=== PATIENT | female | born 1980 | race Caucasian/White ===

== ENCOUNTER 2020-05-04 11:45 | Emergency (ER) | payer OTHER, SELFPAY ==
[2020-05-04 11:52] VITALS: BP 138/96; PULSE 92; RESP 16; TEMP 36.4; O2SAT 100
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
== END 2020-05-04 12:18 | disposition home or self-care (01) ==
PROVIDERS: Emergency Provider Nurse Practitioner; PCP Family Medicine
DX: R09.81 Nasal congestion (principal); H92.01 Otalgia, right ear; I10 Essential (primary) hypertension; M79.7 Fibromyalgia; L40.50 Arthropathic psoriasis, unspecified
CPT/HCPCS: 99213; G0463

== ENCOUNTER 2020-07-28 09:10 | Outpatient (NON) | payer OTHER, SELFPAY ==
[2020-07-28 18:27] LABS: SARS-CoV-2 RNA PCR Positive
== END 2020-07-28 09:11 ==
LOC: ANHCOVIDDT 09:11
PROVIDERS: Family Provider Family Medicine; PCP Family Medicine; Visit Provider Physician Assistant
DX: U07.1 COVID-19 (principal)
CPT/HCPCS: C9803; U0003; U0005

== ENCOUNTER → 2020-09-02 09:13 | Outpatient (CLI) | payer OTHER, SELFPAY ==
--- NOTE | ~2020-09-02 | XR_ITS ---
EXAMINATION: XR lumbar spine 2-3V EXAM DATE: 09/02/2020 09:32 INDICATION: low back pain at multiple sites. TECHNIQUE: Lumber spine frontal, lateral, lateral L5-S1 projections for interpretation. There is no prior study for comparison. FINDINGS: There is moderate disc disease at L5-S1. The vertebral body and disc heights are otherwise well maintained. Mild lower lumbar facet arthropathy. No spondylolysis. Sacrum, sacroiliac joints, s acral arcuate lines are intact. Paraspinal soft tissue is unremarkable. IMPRESSION: 1. L5-S1 moderate disc disease. 2. Mild lower lumbar facet arthropathy. Reviewed, dictated and finalized at location A. STANT CLINICAL NURSE MANAGER
== END ==
DX: M47.817 Spondylosis without myelopathy or radiculopathy, lumbosacral region (principal)
CPT/HCPCS: 72100

== ENCOUNTER → 2021-01-13 13:49 | Outpatient (CLI) | payer BC, OTHER, SELFPAY ==
--- NOTE | ~2021-01-13 | MM_ITS ---
EXAMINATION: MM screening christal BI w erendira HISTORY: Screening mammogram. Baseline examination TECHNIQUE: Craniocaudal and mediolateral oblique 3-D tomosynthesis images were obtained and synthetic 2-D images were generated. CAD analysis was submitted and interpreted. COMPARISON: No prior mammogram is available for comparison at this institution. BREAST PARENCHYMAL COMPOSITION: The breasts are extremely dense, which lowers the sensitivity of mamm ography.... FINDINGS: There is no evidence of suspicious mass, calcification, or architectural distortion to sugg est malignancy in either breast. There has been no suspicious interval change. IMPRESSION: 1. No mammographic evidence of malignancy. 2. Recommend routine screening mammography in one year. BI-RADS Category 1: Negative Reviewed, dictated and finalized at location B.
== END ==
PROVIDERS: Visit Provider Nurse Practitioner
DX: Z12.31 Encounter for screening mammogram for malignant neoplasm of breast (principal)
CPT/HCPCS: 77063; 77067

== ENCOUNTER → 2021-02-20 01:32 | Outpatient (CLI) | payer BC, OTHER, SELFPAY ==
[2021-02-20 20:12] LABS: SARS-CoV-2 RNA PCR Negative
== END ==
PROVIDERS: PCP Family Medicine; Visit Provider Physician Assistant
DX: R05 Cough (principal); Z20.822 Contact with and (suspected) exposure to COVID-19
CPT/HCPCS: C9803; U0003; U0005

== ENCOUNTER 2021-06-19 11:46 | Emergency (ER) | payer BC, OTHER, SELFPAY ==
[2021-06-19 11:55] VITALS: BP 141/85; PULSE 94; RESP 16; TEMP 36.4; O2SAT 100
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
== END 2021-06-19 12:43 | disposition home or self-care (01) ==
PROVIDERS: Emergency Provider Emergency Medicine; PCP Family Medicine
DX: H81.392 Other peripheral vertigo, left ear (principal); I10 Essential (primary) hypertension
CPT/HCPCS: 99213; G0463

== ENCOUNTER 2021-08-03 15:40 | Outpatient (CLI) | payer BC, OTHER, SELFPAY ==
--- NOTE | ~2021-08-03 | CT_ITS ---
EXAMINATION: CT sinus wo con EXAM DATE: 08/03/2021 15:55 INDICATION: R09.82 - Postnasal drip . TECHNIQUE: Spiral CT of the sinuses was acquired in the axial plane. Coronal and sagittal reformatte d images were also reviewed. The dose-length product (DLP) for this examination was 269.39 mGy-cm. Iterative reconstruction (ASIR) was used as dose reduction technique. Comparison is made to prior exa mination from 10/06/2012. FINDINGS: The sinuses are normally developed. The sinuses are well aerated. The ostiomeatal unit s are patent. There is no sinus wall thickening. There is moderate rightward nasal septal devia tion. The mastoid air cells and middle ears are well aerated. External auditory canals are patent. The orbits and visualized soft tissues are unremarkable. IMPRESSION: Moderate rightward nasal septal deviation. Clear sinuses. Reviewed, dictated and finalized at location . OR INSTALLER
== END 2021-08-03 15:41 ==
PROVIDERS: PCP Family Medicine; Visit Provider Otolaryngology
DX: J30.9 Allergic rhinitis, unspecified (principal); R09.82 Postnasal drip; J32.9 Chronic sinusitis, unspecified; J34.2 Deviated nasal septum; J34.3 Hypertrophy of nasal turbinates; J34.89 Other specified disorders of nose and nasal sinuses; R44.8 Other symptoms and signs involving general sensations and perceptions; R51.9 Headache, unspecified
CPT/HCPCS: 70486

== ENCOUNTER → 2022-03-05 16:00 | Outpatient (CLI) | payer BC, OTHER, SELFPAY ==
--- NOTE | ~2022-03-05 | MM_ITS ---
EXAMINATION: MM screening [facility] BI w erendira HISTORY: Screening mammogram TECHNIQUE: Craniocaudal and mediolateral oblique 3-D tomosynthesis images were obtained and synthetic 2-D images were generated. CAD analysis was submitted and interpreted. COMPARISON: 01/13/2021 bilateral screening mammogram BREAST PARENCHYMAL COMPOSITION: The breasts are heterogeneously dense, which may obscure small masses . FINDINGS: There is an asymmetric density in the posterior upper outer right breast. Diagnostic right mammogram and right breast ultrasound examination are recommended. Otherwise there is no evidence of suspicious mass, calcification, or architectural distortion to sugg est malignancy in either breast. There has been no other suspicious interval change. IMPRESSION: 1. Asymmetry in posterior upper outer right breast 2. Diagnostic right mammogram and right breast ultrasound examination are recommended BI-RADS Category 0: Incomplete: Needs additional imaging evaluation. Reviewed, dictated and finalized at location B. IMPRESSION: 1. Asymmetry in posterior upper outer right breast 2. Diagnostic right mammogram and right breast ultrasound examination are recom mended BI-RADS Category 0: Incomplete: Needs additional imaging evaluation.
== END ==
PROVIDERS: PCP Family Medicine; Visit Provider Nurse Practitioner
DX: Z12.31 Encounter for screening mammogram for malignant neoplasm of breast (principal); R92.8 Other abnormal and inconclusive findings on diagnostic imaging of breast
CPT/HCPCS: 77063; 77067

== ENCOUNTER 2022-03-25 13:48 | Outpatient (CLI) | payer BC, OTHER, SELFPAY ==
--- NOTE | ~2022-03-25 | CT_ITS ---
EXAMINATION: CT abdomen pelvis wo con DATE: 03/25/2022 14:06 INDICATION: Cervical duplication TECHNIQUE: Computed tomography (CT) of the abdomen and pelvis was performed without intravenous contr ast. Automated exposure control and iterative reconstruction technique were employed. Exam dose: 437 .46 mGy-cm total exam DLP. COMPARISON: 07/26/2018 CT abdomen pelvis FINDINGS: The lung bases are clear. Normal heart size. Liver, gallbladder, bile ducts, spleen, pancreas, pancreatic duct, and adrenal glands and kidneys are unremarkable on this limited noncontrast examination. No urinary tract calculus or hydroureteronephr osis is detected. Uterus, adnexal areas and urinary bladder appear unremarkable. Normal caliber of the abdominal aorta. No intraperitoneal or retroperitoneal or pelvic mass lesion or adenopathy or ascites is detected. Normal appendix. There is a prominent amount of fecal material in the colon. No bowel obstruction, kevin wel wall thickening, pneumatosis or intraperitoneal free air is detected. Small umbilical hernia containing fat and unobstructed small bowel bowel loop. Prominent degenerative disc disease at L5-S1. No suspicious osteolytic or osteoblastic lesions are no jorge. IMPRESSION: No significant abnormality within the abdomen or pelvis Prominent degenerative disc disease at L5-S1 Reviewed, dictated and finalized at Location A. Reviewed, dictated and finalized at location B.
== END 2022-03-25 13:49 ==
LOC: MICIMG 13:50
PROVIDERS: PCP Family Medicine; Visit Provider Obstetrics & Gynecology Gynecology
DX: Q51.820 Cervical duplication (principal); M51.37 Other intervertebral disc degeneration, lumbosacral region
CPT/HCPCS: 74176

== ENCOUNTER → 2022-03-31 08:36 | Outpatient (CLI) | payer BC, OTHER, SELFPAY ==
--- NOTE | ~2022-03-31 | MMUS_ITS ---
EXAMINATION: MM diagnostic christal RT w erendira, US breast RT limited HISTORY: Asymmetry in posterior upper outer right breast on 03/05/2022 screening mammogram TECHNIQUE: Additional 3-D tomosynthesis images of the right breast were performed and synthetic 2-D i mages were generated. CAD analysis was submitted and interpreted. High resolution upper outer quadran t and axillary tail right breast ultrasound was performed. COMPARISON: 03/05/2022 bilateral screening mammogram FINDINGS: MAMMOGRAPHIC FINDINGS: No suspicious mass or architectural distortion is evident on these supplemental views. There is proba ble mild fibroglandular asymmetry in the right axillary tail area which appears to compress without s uspicious mammographic features. There is heterogeneously dense stroma which may obscure masses. ULTRASOUND: 1:00 4.5 cm from nipple: 4.5 mm cyst 10:00 9 cm from nipple: Benign-appearing 0.5 x 1.5 cm lymph node 12:00 2.5 cm from nipple: 4 mm benign cyst 12-1:00 2.5 cm from nipple: 4 x 10 simple cyst with through transmission and posterior enhancement 12-1:00 2/5 cm from nipple: 4.5 x 10 mm septated cyst with through transmission and enhancement IMPRESSION: 1. No mammographic evidence of malignancy 2. Routine mammographic screening is recommended. BI-RADS Category 2: Benign finding(s). Reviewed, dictated and finalized at location A. IMPRESSION: 1. No mammographic evidence of malignancy 2. Routine mammographic screening is recommended. BI-RADS Category 2: Benign finding(s).
== END ==
PROVIDERS: PCP Family Medicine; Visit Provider Obstetrics & Gynecology Gynecology
DX: R92.8 Other abnormal and inconclusive findings on diagnostic imaging of breast (principal); N60.01 Solitary cyst of right breast
CPT/HCPCS: 76642; 77061; 77065; G0279

== ENCOUNTER 2022-08-29 10:00 | Emergency (ER) | payer BC, OTHER, SELFPAY ==
[2022-08-29 10:43] VITALS: BP 142/78; PULSE 96; RESP 16; TEMP 36.4; O2SAT 99
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
== END 2022-08-29 11:29 | disposition home or self-care (01) ==
PROVIDERS: Emergency Provider Nurse Practitioner Family; PCP Family Medicine
DX: J02.0 Streptococcal pharyngitis (principal); I10 Essential (primary) hypertension; M79.7 Fibromyalgia; L40.50 Arthropathic psoriasis, unspecified
CPT/HCPCS: 87880; 99213; G0463

== ENCOUNTER → 2023-04-02 08:11 | Outpatient (CLI) | payer BC, OTHER, SELFPAY ==
--- NOTE | ~2023-04-02 | MM_ITS ---
EXAMINATION: MM screening christal BI w erendira HISTORY: Screening mammogram TECHNIQUE: Craniocaudal and mediolateral oblique 3-D tomosynthesis images were obtained and synthetic 2-D images were generated. CAD analysis was submitted and interpreted. COMPARISON: 03/31/2022, 03/05/2022, 01/13/2021 BREAST PARENCHYMAL COMPOSITION: The breasts are extremely dense, which lowers the sensitivity of mamm ography. FINDINGS: RIGHT BREAST: No suspicious mass, calcification, or architectural distortion are identified to sugges t malignancy. There has been no suspicious interval change. LEFT BREAST: An asymmetry is present in the posterior third of the breast in line with the nipple axi s on the craniocaudal view. IMPRESSION: 1. Left breast asymmetry. 2. Additional mammographic views and possible breast ultrasound are recommended. BI-RADS Category 0: Incomplete: Needs additional imaging evaluation. Reviewed, dictated and finalized at location A. IMPRESSION: 1. Left breast asymmetry. 2. Additional mammographic views and possible breast ultrasound are recommended . BI-RADS Category 0: Incomplete: Needs additional imaging evaluation.
== END ==
PROVIDERS: PCP Obstetrics & Gynecology Gynecology; Visit Provider Obstetrics & Gynecology Gynecology
DX: Z12.31 Encounter for screening mammogram for malignant neoplasm of breast (principal); N64.89 Other specified disorders of breast
CPT/HCPCS: 77063; 77067

== ENCOUNTER → 2023-04-26 08:32 | Outpatient (CLI) | payer BC, OTHER, SELFPAY ==
--- NOTE | ~2023-04-26 | MMUS_ITS ---
EXAMINATION: MM diagnostic christal LT w erendira, US breast LT complete HISTORY: Mammographic asymmetry reported in posterior third of breast in line with the nipple axis on screening craniocaudal view of 04/02/2023 TECHNIQUE: Additional 3-D tomosynthesis images of the left breast were performed and synthetic 2-D im ages were generated. CAD analysis was submitted and interpreted. High resolution complete left breast ultrasound examination could L4 quadrants and subareolar area was performed. COMPARISON: 04/02/2023 bilateral screening mammogram FINDINGS: MAMMOGRAPHIC FINDINGS: 4 x 6.9 mm circumscribed benign-appearing lymph node is noted at mid depth in the lateral mid left br east (ML Tomosynthesis image ). There is focal asymmetric density in the posterior central left breast on craniocaudal view which may represent an abnormal mass or asymmetric fibroglandular stroma. Ultrasound correlation was performed . ULTRASOUND: No suspicious mass or shadowing is detected. 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 IMPRESSION: 1. Probably benign fibroglandular asymmetry; no mammographic or sonographic evidence of malignancy 2. 6 month diagnostic left mammogram follow-up is recommended to document stability, with ultrasound if required BI-RADS category 3, probably benign findings. Reviewed, dictated and finalized at location A. IMPRESSION: 1. Probably benign fibroglandular asymmetry; no mammographic or sonographic juliette dence of malignancy 2. 6 month diagnostic left mammogram follow-up is recommended to document stabi lity, with ultrasound if required BI-RADS category 3, probably benign findings.
== END ==
PROVIDERS: PCP Family Medicine; Visit Provider Obstetrics & Gynecology Gynecology
DX: R92.8 Other abnormal and inconclusive findings on diagnostic imaging of breast (principal)
CPT/HCPCS: 76641; 77061; 77065; G0279

== ENCOUNTER 2023-05-28 12:17 | Emergency (ER) | payer BC, OTHER, SELFPAY ==
[2023-05-28 12:39] VITALS: BP 133/90; PULSE 95; RESP 16; TEMP 36.4; O2SAT 100
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
== END 2023-05-28 12:59 | disposition home or self-care (01) ==
PROVIDERS: Emergency Provider Nurse Practitioner; PCP Family Medicine
DX: J06.9 Acute upper respiratory infection, unspecified (principal); J02.9 Acute pharyngitis, unspecified; I10 Essential (primary) hypertension
CPT/HCPCS: 87081; 87880; 99213; G0463

== ENCOUNTER 2023-06-04 11:47 | Emergency (ER) | payer BC, OTHER, SELFPAY ==
[2023-06-04 11:59] VITALS: BP 133/95; PULSE 96; RESP 16; TEMP 36.1; O2SAT 100
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
== END 2023-06-04 13:25 | disposition home or self-care (01) ==
PROVIDERS: Emergency Provider Registered Nurse; PCP Family Medicine
DX: J32.9 Chronic sinusitis, unspecified (principal); R05.9 Cough, unspecified; I10 Essential (primary) hypertension; M79.7 Fibromyalgia; L40.50 Arthropathic psoriasis, unspecified
CPT/HCPCS: 99213; G0463

== ENCOUNTER 2023-06-21 17:03 | Emergency (ER) | payer BC, OTHER, SELFPAY ==
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
[2023-06-21 17:12] VITALS: BP 132/81; PULSE 97; RESP 16; TEMP 36.6; O2SAT 100
== END 2023-06-21 17:48 | disposition home or self-care (01) ==
PROVIDERS: Emergency Provider Nurse Practitioner; PCP Family Medicine
DX: J02.9 Acute pharyngitis, unspecified (principal); I10 Essential (primary) hypertension
CPT/HCPCS: 87081; 87880; 99213; G0463

== ENCOUNTER → 2023-08-12 10:18 | Outpatient (CLI) | payer BC, OTHER, SELFPAY ==
--- NOTE | ~2023-08-12 | US_ITS ---
EXAMINATION: US pelvic complete DATE: 08/12/2023 10:56 INDICATION: Abnormal uterine bleeding TECHNIQUE: Multiple transabdominal sonographic images of the pelvis were obtained. COMPARISON: 06/18/2017 FINDINGS: The uterus measures 8.3 x 4.7 x 4.6 cm. The endometrial complex measures 8 mm. The right ov saba measures 2.6 x 3.1 x 3.1 cm. The left ovary measures 3.5 x 2 x 3.5 cm. There is normal vascular f low in the ovaries. There is no free fluid in the pelvis. A diverticulum of the urinary bladder is no jorge. IMPRESSION: 1. No sonographic correlate for the patient's symptoms. Reviewed, dictated and finalized at location [facility]. [facility]
== END ==
PROVIDERS: PCP Family Medicine; Visit Provider Nurse Practitioner
DX: N93.8 Other specified abnormal uterine and vaginal bleeding (principal); R19.09 Other intra-abdominal and pelvic swelling, mass and lump
CPT/HCPCS: 76856

== ENCOUNTER 2023-10-01 13:14 | Outpatient (CLI) | payer BC, OTHER, SELFPAY ==
[2023-10-01 13:43] LABS: Anion Gap 6 mmol/L (4-12); Blood Urea Nitrogen 20 mg/dL (7-17); Calcium 9.2 mg/dL (8.4-10.2); Carbon Dioxide 29 mmol/L (22-30); Chloride 100 mmol/L (98-107); Estimated Glomerular Filt Rate > 60; Glucose 109 mg/dL (65-110); Potassium 4.4 mmol/L (3.4-5.0); Sodium 135 mmol/L (137-145)
== END 2023-10-01 13:15 | disposition home or self-care (01) ==
LOC: ANHLAB 13:16
PROVIDERS: PCP Family Medicine; Visit Provider Anesthesiology
DX: Z01.818 Encounter for other preprocedural examination (principal); Z79.899 Other long term (current) drug therapy
CPT/HCPCS: 36415; 80048

== ENCOUNTER 2023-10-03 00:13 | Day surgery (SDC) | payer BC, OTHER, SELFPAY ==
[2023-09-27 11:57] VITALS: BMI 26.9
--- NOTE | 2023-09-27 12:03 | PC.NURSE ---
Report to the Outpatient Waiting Room, entrance under the green pavilion located off [facility], at time 12:15 on date 10/03/23. Planned Procedure Time: 2:15. Time changes happen often and if your time is changed the preop area will call you the afternoon before. - You and your visitor will be asked to self-screen and do not enter if you have any COVID symptoms. - A mask is optional within the hospital at this time. Patients may have clear liquids (water, carbonated beverages, clear teas, apple juice) until 3 hours prior to surgery with a maximum of 20 ounces. - No food from midnight until time of surgery Take the following medications with a SIP of water the morning of surgery: XANAX IF NEEDED, AMLODIPINE, METOPROLOL, VENLAFAXINE, TRAMADOL IF NEEDED DO NOT STOP ANY OF YOUR OTHER PRESCRIPTION MEDICATIONS PRIOR TO SURGERY ?EXCEPT THE FOLLOWING Medications to discontinue per physician: VITAMINS/SUPPLEMENTS Date to take last dose: 09/29/23 Please no make-up, nail cymraes, hairspray, perfume, deodorant, or body powder the day of surgery. No jewelry (including any body piercings) or valuables the day of surgery, leave them at home. Please take a shower or bath the night before, or the morning of, surgery with an antibacterial soap. Wear comfortable, loose fitting clothing. - Jewelry must be removed prior to entering the operating room. Rings and piercings that are not removed may be cut off. - The hospital will not accept responsibility for valuables. - Please leave all valuables, including medications, at home the day of surgery. If you are going home after surgery, a licensed yard driver must drive you home. - NO public transportation without another adult if you receive anesthesia. - We recommend that an adult stay with you for 24 hours following discharge. - We also recommend that you do not drive, make important decision, drink alcoholic beverages, or take any drugs that were not prescribed by your health care provider for at least 24 hours after your discharge time. Follow any additional instructions given to you from your surgeon. If you or anyone in your household have experienced Covid symptoms in the past week, please notify your surgeon or the nurse liaison at the phone number below for possible testing. Telephone instructions given to REJI BARR and asked if any additional questions and then verbalized understanding. Patient advised to call surgeon office or pre surgery nurse liaison [phone] if any additional questions.
--- NOTE | 2023-10-03 07:48 | WPDANESEPPF ---
Anes - Initial Pre Proc Eval Procedure: Operation Date: 10/03/23 13:30 Proposed Procedures p Hysteroscopy Dilation and Curettage - Shiela Harris MD Date/Time: 10/03/23 07:48 Surgeon: Shiela Harris MD Pre Op Diagnosis: abnormal uterine bleeding Patient Data Age: 42 Gender: F Height: 1.6 m Weight: 69 kg Allergies Allergy/AdvReac Type Severity Reaction Status Date / Time No Known Allergies Allergy Verified 10/03/23 12:10 Home Medications Medication Instructions Recorded Confirmed Type tramadol 50 mg tablet 50 mg PO Q6H PRN Pain 06/13/19 10/03/23 History adalimumab 20 mg/0.4 mL See Rx Instructions subcut 06/20/19 10/03/23 Rx subcutaneous syringe kit (Humira) .COMPLEX #2 ea naproxen 500 mg tablet 500 mg PO DIRECTED 05/04/20 10/03/23 History fluticasone propionate 50 2 spray intranasal DAILY 14 days 07/05/22 10/03/23 Rx mcg/actuation nasal #15.8 mL spray,suspension (Flonase Allergy Relief) spironolactone 100 mg tablet 100 mg PO DAILY #135 tabs 01/31/23 10/03/23 Rx metoprolol succinate 25 mg 25 mg PO DAILY #90 tabs 05/02/23 10/03/23 Rx tablet,extended release 24 hr amlodipine 2.5 mg tablet 2.5 mg PO DAILY #90 tabs 06/05/23 10/03/23 Rx mupirocin 2 % topical ointment 1 applic topical BID #22 grams 07/20/23 10/03/23 Rx valacyclovir 500 mg tablet 500 mg PO Q12H PRN cold sores #10 07/28/23 10/03/23 Rx tabs alprazolam 0.25 mg tablet (Xanax) 0.25 mg PO TID PRN anxiety #90 tabs 08/11/23 10/03/23 Rx venlafaxine 75 mg capsule,extended 75 mg PO DAILY #90 caps 09/09/23 10/03/23 Rx release 24 hr folic acid 400 mcg tablet 0.4 mg PO DAILY 09/27/23 10/03/23 History methotrexate sodium 2.5 mg tablet 20 mg PO WEEKLY 09/27/23 10/03/23 History Patient hx anesthesia problems: none Family hx anesthesia problems: none Results Review: All pre-operative results and documents have been reviewed as part of the pre-operative evaluation. [facility] Past Medical History Medical History (Updated 10/03/23 @ 09:50 by Shiela Harris MD) Anxiety Depression Essential hypertension Fibromyalgia Hepatic cyst Migraine Pre-eclampsia in period Psoriatic arthritis Surgical History Surgical History (Updated 10/03/23 @ 09:47 by Shiela Harris MD) H/O sinus surgery History of bilateral tubal ligation with 2018 History of x2 History of D&C 2015 spontaneous History of foot surgery Family History Family History Sibling Family history of alcoholism, Onset Age: 45 Father Family history of lung cancer, Onset Age: 63 Other Family history of malignant neoplasm of cervix Social History Social History Years smoked: 10 Smoking status: Former smoker Tobacco type: cigarettes Second hand tobacco smoke exposure: No Smoking end date: 07/04/13 Alcohol intake: never Alcohol use details: seldom; socially Substance use: never Substance use type: does not use Lack of Transportation: No Lack of Food: Never True Current Housing: I Have Housing Concerned About Future Housing: No Difficulty Paying Gas/Electric Bills: No Difficulty Paying for Meds: No Currently Unemployed: No Education: Bachelor's Degree Difficulty w/ Childcare or Family Care: No Living arrangements: with family Additional living arrangements comments: Lives with . Gender identity (if verbalized by the patient): Female Sexual Orientation (if Verbalized by the Patient): Straight or Heterosexual Spiritual care concerns: No Agree to blood products: Yes Anes - Eval Final PreProcedure Day of Procedure 10/03/23 07:48 Patient weight: overweight Heart: regular rate and rhythm Lungs: clear to auscultation Airway: Mallampati scale class II Neurological: alert and oriented Last oral intake:
--- NOTE | 2023-10-03 09:43 | WPDHPUPDATE1 ---
History and Physical Update Update Date/Time: 10/03/23 09:43 History and Physical has been reviewed, including an updated exam of the patient. There are NO changes in the patient's condition. Risks, benefits, and alternatives have been discussed and questions answered. Patient agrees to proceed with procedure.
--- NOTE | 2023-10-03 09:44 | PM.HPGS ---
History of Present Illness History of Present Illness Consent: Risks, benefits, and alternatives have been discussed and questions answered. Patient agrees to proceed with procedure. Chief complaint: abnormal uterine bleeding Narrative: Rosalinda Carney is a 42 year old female with prolonged, irregular, and heavy bleeding since February. Pelvic ultrasound was normal. It was recommended to undergo D&C hysteroscopy to further evaluate. Risks of infection, bleeding, perforation, and possible pathology are discussed. Patient voices understanding and agrees to proceed. Review of Systems Review of Systems: not repeated day of surgery; patient states no changes in status [facility] Past Medical History Medical History (Updated 10/03/23 @ 09:50 by Shiela Harris MD) Anxiety Depression Essential hypertension Fibromyalgia Hepatic cyst Migraine Pre-eclampsia in period Psoriatic arthritis Surgical History Surgical History (Updated 10/03/23 @ 09:47 by Shiela Harris MD) H/O sinus surgery History of bilateral tubal ligation with 2017 History of x2 History of D&C 2014 spontaneous History of foot surgery Family History Family History Sibling Family history of alcoholism, Onset Age: 45 Father Family history of lung cancer, Onset Age: 63 Other Family history of malignant neoplasm of cervix Social History Social History Years smoked: 10 Smoking status: Former smoker Tobacco type: cigarettes Second hand tobacco smoke exposure: No Smoking end date: 07/04/13 Alcohol intake: never Alcohol use details: seldom; socially Substance use: never Substance use type: does not use Lack of Transportation: No Lack of Food: Never True Current Housing: I Have Housing Concerned About Future Housing: No Difficulty Paying Gas/Electric Bills: No Difficulty Paying for Meds: No Currently Unemployed: No Education: Bachelor's Degree Difficulty w/ Childcare or Family Care: No Living arrangements: with family Additional living arrangements comments: Lives with . Gender identity (if verbalized by the patient): Female Sexual Orientation (if Verbalized by the Patient): Straight or Heterosexual Spiritual care concerns: No Agree to blood products: Yes Meds Home Medications and Allergies Home Medications Medication Instructions Recorded Confirmed Type tramadol 50 mg tablet 50 mg PO Q6H PRN Pain 06/13/19 09/27/23 History adalimumab 20 mg/0.4 mL See Rx Instructions subcut 06/20/19 09/27/23 Rx subcutaneous syringe kit (Humira) .COMPLEX #2 ea naproxen 500 mg tablet 500 mg PO DIRECTED 05/04/20 09/27/23 History fluticasone propionate 50 2 spray intranasal DAILY 14 days 07/05/22 09/27/23 Rx mcg/actuation nasal #15.8 mL spray,suspension (Flonase Allergy Relief) spironolactone 100 mg tablet 100 mg PO DAILY #135 tabs 01/31/23 09/27/23 Rx metoprolol succinate 25 mg 25 mg PO DAILY #90 tabs 05/02/23 09/27/23 Rx tablet,extended release 24 hr amlodipine 2.5 mg tablet 2.5 mg PO DAILY #90 tabs 06/05/23 09/27/23 Rx mupirocin 2 % topical ointment 1 applic topical BID #22 grams 07/20/23 09/27/23 Rx valacyclovir 500 mg tablet 500 mg PO Q12H PRN cold sores #10 07/28/23 09/27/23 Rx tabs alprazolam 0.25 mg tablet (Xanax) 0.25 mg PO TID PRN anxiety #90 tabs 08/11/23 09/27/23 Rx venlafaxine 75 mg capsule,extended 75 mg PO DAILY #90 caps 09/09/23 09/27/23 Rx release 24 hr folic acid 400 mcg tablet 0.4 mg PO DAILY 09/27/23 09/27/23 History methotrexate sodium 2.5 mg tablet 20 mg PO WEEKLY 09/27/23 09/27/23 History Allergies Allergy/AdvReac Type Severity Reaction Status Date / Time No Known Allergies Allergy Verified 09/27/23 11:54 Exam Const: General: healthy appearing and alert O
[2023-10-03] MEDS: ACETAMINOPHEN 500 MG TABLET 1000 MG PO (11:58)
[2023-10-03] MEDS: LACTATED RINGERS 1,000 ML 30 ML IV CONT (12:05)
[2023-10-03 12:13] VITALS: BP 120/82; PULSE 91; RESP 16; TEMP 36.2; O2SAT 100
--- NOTE | 2023-10-03 12:44 | P.OP_ITS ---
Procedure Note - Detailed Date of Procedure 10/03/23 Pre-op Diagnosis abnormal uterine bleeding Post-op Diagnosis Same Procedure Performed D&C hysteroscopy Surgeon Shiela Harris MD Anesthesia MAC Findings 2 external cervical openings in one cervical body the right cervical opening is the true opening to a normal endometrial cavity with both tubal ostium visible the left cervical opening is a false passage Description of Procedure The patient is taken to the operating room and placed under anesthesia in the dorsal lithotomy position. She was prepped and draped in the usual sterile fashion. [place] speculum was placed in the vagina and the cervix grasped on the anterior lip with a tenaculum. Sound did not pass either external os. The os Finders were opened and placed and the right cervical opening was able to be dilated with the os finder. The left was not. The uterus was then sounded to 8cm. The hysteroscope is placed into the right cervical opening and hydro dissected into the cavity. The cavity appears grossly normal both tubal ostia are visible. The hysteroscope was removed and the cervix serially dilated to allow passage of the OO sharp curette. The endometrium was curetted in a sharp manner until a good uterine cry was noted in all areas. All instruments are removed. Sponge, needle, and instrument counts are correct per the OR staff. The patient was awakened from anesthesia and taken to recovery in stable co ndition. Estimated Blood Loss 5 Drains No Packing No Pathology Yes ( Endometrial curettings) Complications No immediate complications Condition Stable Disposition PACU
[2023-10-03 12:47] VITALS: BP 105/69; PULSE 78; RESP 14; O2SAT 99
[2023-10-03 13:15] VITALS: BP 99/63; PULSE 78; RESP 14; O2SAT 93
[2023-10-03 13:45] VITALS: BP 121/73; PULSE 84; RESP 14; O2SAT 97
[2023-10-03 14:10] VITALS: BP 121/80; PULSE 81; RESP 14
== END 2023-10-03 14:10 | disposition home or self-care (01) ==
PROVIDERS: PCP Family Medicine; Visit Provider Obstetrics & Gynecology Gynecology
PROC: 0U5B8ZZ Destruction of Endometrium, Via Natural or Artificial Opening Endoscopic (ICD-10-PCS; CPT 58563; principal; 2023-10-03 13:30)
DX: N92.0 Excessive and frequent menstruation with regular cycle (principal); F41.9 Anxiety disorder, unspecified; F32.A Depression, unspecified; I10 Essential (primary) hypertension; Z79.891 Long term (current) use of opiate analgesic; Z79.1 Long term (current) use of non-steroidal anti-inflammatories (NSAID); Z98.890 Other specified postprocedural states; Z87.891 Personal history of nicotine dependence; Z80.1 Family history of malignant neoplasm of trachea, bronchus and lung; Z80.49 Family history of malignant neoplasm of other genital organs
CPT/HCPCS: 58558; 36415; 80048; 88305; A9270; J2250; J2405; J2704; J3010; J7120